=== PATIENT | female | born 1970 | race Caucasian/White ===

== ENCOUNTER 2017-03-13 12:30 | Outpatient (CLI) | payer BC ==
--- NOTE | 2017-04-04 12:22 | MMO ---
BILATERAL SCREENING MAMMOGRAM: HISTORY: Annual screening exam. COMPARISON: None. The patient had a previous mammogram in [place], but these have never been received. If they are rec eived, then an addendum can be issued. FINDINGS: The breasts are heterogeneously dense. There is no dominant mass, suspicious calcification, or other signs of malignancy. There is an area of slight nodular asymmetry seen in the upper outer right quintin ast. IMPRESSION: BI-RADS Category 0: Incomplete assessment. Further imaging required. In this case, focal spot view s of the area marked within the right breast to be followed by ultrasound if needed. POS: MALISSA
== END 2017-03-13 12:31 | disposition home or self-care (01) ==
LOC: SCSMAMMO 12:30
PROVIDERS: ATTEND Family Medicine
DX: Z12.31 Encounter for screening mammogram for malignant neoplasm of breast (principal)
CPT/HCPCS: 77067; G0202

== ENCOUNTER 2017-04-27 09:05 | Outpatient (CLI) | payer BC | END 2017-04-27 09:06 | disposition home or self-care (01) | LOC: BICMAMMO 09:05 | PROVIDERS: ATTEND Family Medicine | DX: N63.10 Unspecified lump in the right breast, unspecified quadrant (principal) | CPT/HCPCS: G0279 ==

== ENCOUNTER 2018-10-10 10:28 | Outpatient (CLI) | payer BC ==
--- NOTE | 2018-10-10 11:22 | MMO ---
Bilateral MAMMO Bilat Screen [facility]. CLINICAL HISTORY: Patient is 48 years old and is seen for screening. The patient has the following family history of breast cancer: mother, at age 50. The patient has no personal history of cancer. VIEWS: The views performed were: bilateral craniocaudal with tomosynthesis and bilateral mediolateral oblique with tomosynthesis. FILMS COMPARED: The present examination has been compared to prior imaging studies performed at [facility] on 12/10/2015, and at [facility] on 04/27/2017. MAMMOGRAM FINDINGS: The breasts are heterogeneously dense, which could obscure a lesion on mammography. There are no suspicious masses, suspicious calcifications, or new areas of architectural distortion. IMPRESSION: THERE IS NO MAMMOGRAPHIC EVIDENCE OF MALIGNANCY. A ROUTINE FOLLOW-UP MAMMOGRAM IN 1 YEAR IS RECOMMENDED. THE RESULTS OF THIS EXAM WERE SENT TO THE PATIENT. ACR BI-RADS Category 1 - Negative MAMMOGRAPHY NOTE: 1. A negative mammogram report should not delay a biopsy if a dominant of clinically suspicious mass is present. 2. Approximately 10% to 15% of breast cancers are not detected by mammography. 3. Adenosis and dense breasts may obscure an underlying neoplasm. Reported by: IVANIA ROBINS MD Electonically Signed: [id number]
== END 2018-10-10 10:29 | disposition home or self-care (01) ==
LOC: BICMAMMO 10:28
PROVIDERS: ATTEND Family Medicine
DX: Z12.31 Encounter for screening mammogram for malignant neoplasm of breast (principal); Z80.3 Family history of malignant neoplasm of breast
CPT/HCPCS: 77063; 77067

== ENCOUNTER 2020-12-21 15:05 | Outpatient (CLI) | payer BC | END 2020-12-21 15:06 | disposition home or self-care (01) | LOC: BICMAMMO 15:05 | PROVIDERS: ATTEND Family Medicine | DX: Z12.31 Encounter for screening mammogram for malignant neoplasm of breast (principal); Z80.3 Family history of malignant neoplasm of breast | CPT/HCPCS: 77063; 77067 ==

== ENCOUNTER 2023-05-18 09:38 | Outpatient (CLI) | payer BC ==
[2023-05-18 11:01] LABS: #Eosinphils 0.1 10x3/uL (0.0-0.5); #Monocytes 0.5 10x3/uL (0.0-1.1); #Neutrophils 3.5 10x3/uL (1.5-8.4); %Basophils 0.6 % (0.0-2.0); %Eosinophils 2.2 % (0.0-6.0); %Lymphocytes 33.2 % (18.0-47.0); %Monocytes 8.5 % (0.0-10.0); %Neutrophils 55.3 % (40.0-75.0); Hematocrit 41.9 % (34.9-44.5); Mean Corpuscular HGB CONC 33.4 g/dL (32.0-36.0); Mean Corpuscular Hemoglobin 32.3 pg (27.0-33.0); Mean Corpuscular Volume 96.5 fl (81.6-98.3); Mean Platelet Volume 10.5 fl (7.4-10.4); Platelet Count 260 10x3/uL (150-450); Red Blood Cell (RBC) Count 4.34 10x6/uL (3.90-5.03); White Blood Cell (WBC) Count 6.4 10x3/uL (3.5-10.5)
[2023-05-18 11:05] LABS: BHCG - Serum Negative (NEGATIVE); Pregs Control Background? CLEAR/WHITE (CLR/WHITE); Pregs Control Bar Appear? YES (CONTROL BAR)
[2023-05-18 11:30] LABS: ALT (SGPT) 55 U/L (8-55); AST (SGOT) 36 U/L (5-34); Albumin 4.5 g/dL (3.5-5.0); Alkaline Phosphatase 86 U/L (40-110); Anion Gap 13 mmol/L (10-20); BUN (Urea Nitrogen) 14 mg/dL (9.8-20.1); Bilirubin, Direct 0.2 mg/dL (0.1-0.3); Bilirubin, Total 0.4 mg/dL (0.2-1.2); Calc. Creatinine Clearance 0 mL/min (70-130); Calcium 9.3 mg/dL (7.8-10.44); Carbon Dioxide 24 mmol/L (22-29); Chloride 106 mmol/L (98-107); Estimated GFR 95; Glucose 92 mg/dL (70-105); Potassium 4.6 mmol/L (3.5-5.1); Protein, Total 7.2 g/dL (6.0-8.3); Sodium 138 mmol/L (136-145)
== END 2023-05-18 09:39 | disposition home or self-care (01) ==
LOC: LABBT 09:38
PROVIDERS: ATTEND Surgery
DX: Z01.812 Encounter for preprocedural laboratory examination (principal); K80.20 Calculus of gallbladder without cholecystitis without obstruction
CPT/HCPCS: 80048; 80076; 84703; 85025

== ENCOUNTER 2023-05-24 05:49 | Day surgery (SDC) | payer BC ==
[2023-05-18 10:35] VITALS: BMI 26.3
[2023-05-24] MEDS ORDERED: Sodium Chloride 0.9% 100 ML ONE (06:46)
[2023-05-24] MEDS ORDERED: CEFAZOLIN 2 GM VIAL ONE (06:46)
[2023-05-24] MEDS ORDERED: Bupivacaine 0.25% HCL 30 ML VIAL ONE (06:49)
[2023-05-24] MEDS ORDERED: Indocyanine Green 25 MG/10 ML VIAL ONE (06:49)
[2023-05-24] MEDS ORDERED: EPINEPHrine 1 MG/ML VIAL ONE (06:49)
[2023-05-24] MEDS ORDERED: Iopamidol 30 ML ONE (06:49)
[2023-05-24] MEDS ORDERED: fentaNYL PF 100 MCG/2 ML SYRINGE ONE (07:04)
[2023-05-24] MEDS ORDERED: PROPOFOL 20 ML ONE (07:05)
[2023-05-24] MEDS ORDERED: Rocuronium Bromide 10 MG/ML (10ML VIAL) ONE (07:05)
[2023-05-24] MEDS ORDERED: Lidocaine 1% PF 5 ML VIAL ONE (07:05)
[2023-05-24] MEDS ORDERED: Ondansetron PF 4 MG/2 ML Vial ONE ×3 (07:44→09:55)
[2023-05-24] MEDS ORDERED: Dexamethasone 20 MG/5 ML VIAL ONE (07:44)
[2023-05-24] MEDS ORDERED: ePHEDrine Sulfate 50 MG/10 ML VIAL ONE (07:46)
[2023-05-24] MEDS ORDERED: Glycopyrrolate 0.2 MG/ML 5 ML SYRINGE ONE (07:48)
[2023-05-24] MEDS ORDERED: Dexmedetomidine 200 MCG/2 ML VIAL ONE (08:13)
[2023-05-24] MEDS ORDERED: Ketorolac Tromethamine 30 MG (1 mL) VIAL ONE ×2 (08:13→09:55)
[2023-05-24] MEDS ORDERED: NEOSTIGMINE 3 MG/3 ML SYR 3 MG/3 ML SYRINGE ONE (08:16)
[2023-05-24] MEDS ORDERED: SUGAMMADEX SODIUM 200 MG/2 ML VIAL ONE ×2 (08:20→09:58)
[2023-05-24] MEDS ORDERED: fentaNYL 50 mcg/mL 1 mL Vial ONE ×2 (08:46→09:01)
[2023-05-24] MEDS ORDERED: Promethazine 25 MG TAB ONE (10:09)
[2023-05-24] MEDS ORDERED: traMADol HCl 50 MG TAB ONE (10:25)
== END 2023-05-24 11:20 | disposition home or self-care (01) ==
LOC: SDC 05:49
PROVIDERS: ATTEND Surgery
PROC: BF13YZZ Fluoroscopy of Gallbladder and Bile Ducts using Other Contrast (ICD-10-PCS; principal; 2023-05-24)
PROC: 0FT44ZZ Resection of Gallbladder, Percutaneous Endoscopic Approach (ICD-10-PCS; principal; 2023-05-24)
DX: K80.10 Calculus of gallbladder with chronic cholecystitis without obstruction (principal); Z91.040 Latex allergy status; Z91.010 Allergy to peanuts
CPT/HCPCS: 47532; 88304; C1889; J0171; J0665; J1100; J1885; J2405; J2704; J3010; J3490; Q0169; Q9967